=== PATIENT | male | born 1955 | race Caucasian/White ===

== ENCOUNTER → 2017-03-02 | Outpatient (CLI) | payer SELFPAY | END | disposition home or self-care (01) | LOC: YCFC.O 08:44 | PROVIDERS: ATTEND Nurse Practitioner Family | DX: I10 Essential (primary) hypertension (principal); Z13.220 Encounter for screening for lipoid disorders; Z12.5 Encounter for screening for malignant neoplasm of prostate ==

== ENCOUNTER → 2020-03-13 | Outpatient (CLI) | payer BC ==
--- NOTE | 2020-03-14 09:36 | CT ---
Procedure: CT LUNG SCREENING Exam Date: March 13, 2020. Ordering Provider: Vivek Scott Clinical Indication: NICOTINE DEPENDENCE . Current cigarette smoker. 10 pack years. This patient meets eligibility criteria for low-dose CT lung cancer screening. Comparison: None. Baseline lung screening study. Technique: Using a multislice scanner, sequential helical axial imaging was obtained in the thorax, 2.5 mm thickness, 2.5 mm separation, from the level of the thoracic inlet through the lung bases without IV contrast. A low dose protocol was utilized for BMI less than 30: BMI: 21. CTDI: 1.76 mGy. 120. kVp. 45 mA. DLP 71 mGy-cm. 2D sagittal and coronal reconstructed images, 6.0 mm thickness, were obtained. This exam was performed according to our departmental dose optimization program which includes use of automated exposure control, adjustment of the mA and/or kV according to patient size and/or use of iterative reconstruction technique. Nodule measurements under 10 mm are given as mean value of 3 axes diameters. FINDINGS: Lungs and large airways: Multiple abnormal nodules and masses bilaterally. The largest is in the lateral subpleural mid right upper lobe and contains several air bronchograms. Spiculated margins with more solid component lateral and inferior; no calcification. 3.3 x 2.3 cm in the transverse plane. 2.5 cm craniocaudal. Axial series 2, image 50, coronal series 601, image 37, and sagittal series 602 image 41. Mass with air bronchograms and spiculated margins in the subpleural right apex also abutting the pleura; no calcification. 1.5 x 1.2 cm in the transverse plane and long axis is 1.8 cm in the coronal plane. Seen on image 2/25. Mass with smoother margins and no air bronchograms abutting the superior right major fissure on axial image 2/47. Question of marginal calcification: 1.6 x 1.3 cm in the transverse plane and 1.6 cm craniocaudal axis. Subpleural nodule in the superior segment right lower lobe medially measuring 6.5 x 6.1 mm on axial series 2/66. Mineral spiculation with no air bronchograms and no calcification. 4.8 mm spiculated nodule in the central inferior right middle lobe on image 2/74. No calcifications. 4.4 mm solid nodule subpleural lateral right lower lobe with minimal spiculation on axial image 2/83. No calcification. Minimal posterior dependent atelectasis in the right lower lobe. 3 mm groundglass nodule versus solid nodule in the central lingula on axial image 2/56. Adjacent to a focal bleb. Minimal thickening of the inferior left major fissure. Bilobed mass with partial spiculation in the medial recess of the left lower lobe measuring 4.9 mm on axial image 2/116 lung nodule with minimal irregularity of the margin in the posterior subpleural left lower lobe measuring 4.8 mm on axial image 2/104. Smaller 3 mm nodule medial aspect of the superior segment of the left lower lobe subpleural and solid, on axial image 2/. Possible mass. Spiculation or infiltrate or prominent pulmonary vascular structure on axial images -, at the inferior anterior hilum, and anterior inferior lingula. Bilateral lung volumes are increased. Multiple bilateral parenchymal blebs and a centrilobular distribution. No subpleural or peripheral groundglass opacities. Minimal perihilar peribronchial cuffing. No consolidating infiltrate. Round calcifications less than 3 mm in diameter in the mid left upper lobe and the left apex. 2 mm calcified nodule posterior superior segment right lower lobe. Pleura and space: No calcifications. Bilateral confluent mild thickening. No acute process. Mediastinum and karson: evaluation limited by low dose technique and lack of IV contrast. Small nodes in the mediastinum and karson with no dominant soft tissue masses. Heart and great vessels: Coronary artery calcifications. Atherosclerotic calcifications in the aortic arch, several brachiocephalic vessels, in the degree descending thoracic aorta. Also ectasia in the aortic arch. Chest wall, lower neck, axillae: Evaluation also limited by same factors as described above. Minimal soft tissue due to body habitus. Axillary nodes are standard size. No dominant soft tissue mass. Upper abdomen: Evaluation limited by low-dose technique. Atherosclerotic calcification including abdominal aorta and major branch vessels including the gastric artery and splenic artery. Transverse colon and splenic flexure distended by gas and fecal matter. Minimal intra-abdominal fat. No free air or free fluid. Osseous structures: Evaluation limited by low dose MIP technique. Multiple levels of thoracic spondylosis and disc space loss as well as foraminal narrowing. [id number] arthrosis. IMPRESSION: 1. Multiple masses in the right lung and multiple abnormal nodules bilaterally. The largest mass in the right upper lobe contains air bronchograms with spiculated margins but no calcification. At least one mass may have peripheral calcification. Largest mass in the left lung associated with the inferior hilum and possible infiltrate. Moderate emphysematous changes in the lungs bilaterally.. [facility] Best Practice Recommendations: please see below for Lung RADS category and FOLLOW-UP.* *Lung RADS category Category 4B - Very Suspicious - findings for which additional diagnostic testing and/or tissue sampling is recommended (greater than 15% malignancy probability). Nodules: Solid nodule(s) 15mm (1767.1 mm3) or larger at baseline, OR new or growing, and 8mm (268.1 mm3) or larger solid nodule. Part solid nodule(s) with a solid component 8 mm (268.1 mm3) or greater, OR with a new or growing 4mm (33.5 mm3) or larger solid component. Follow-up: Please consider standard dose chest CT with or without contrast, PET/CT and/or tissue sampling depending on the "probability of malignancy and comorbidities." PET/CT may be used when there is an 8mm or greater solid component. 2. Lung RADS Modifier S - Clinically Significant or Potentially Clinically Significant Findings (non lung cancer). Coronary artery calcifications and emphysema. Ectasia of the aortic arch. CRITICAL COMMUNICATION: The critical value was communicated directly by Dr. Leal via phone call, with Dr. Vivek Scott, at approximately 930 hours, on March 14, 2020. Electronically signed by: Bob Leal MD 03/14/2020 9:34 AM [employer] LO[employer]PERATOR
== END ==
LOC: CT 14:02
PROVIDERS: ATTEND General Practice
DX: Z12.2 Encounter for screening for malignant neoplasm of respiratory organs (principal); R91.8 Other nonspecific abnormal finding of lung field; J43.9 Emphysema, unspecified; Z87.891 Personal history of nicotine dependence